=== PATIENT | female | born 1995 | race Caucasian/White ===

== ENCOUNTER 2024-06-18 10:15 | Emergency (ER) | payer OTHER, SELFPAY ==
[2024-06-18 10:25] VITALS: BP 115/81
--- NOTE | 2024-06-18 11:00 | EDRN ---
Dr. Le in room w/pt
[2024-06-18 11:13] VITALS: BMI 25.1
[2024-06-18 11:40] VITALS: BP 126/84
--- NOTE | 2024-06-18 11:46 | ED.GENMED ---
History of Present Illness
General
Chief Complaint: Skin Problem
Time Seen by Provider: 06/18/24 10:42
History of Present Illness
History of Present Illness:
29-year-old female with history of healthcare anxiety on medication presenting to the emergency department for concern of a lump to her right breast. Patient reports last evening she felt like she had a lump in her right upper breast. She went to
urgent care prior to arrival, they told her that she may have a swollen lymph node and advised that she come to the hospital for a mammogram and breast ultrasound. Patient denies any family history of cancer. She reports that she tried to feel the
lump again, however can no longer feel it. Reports that her last menstrual period was about a week ago. Denies any discharge from the nipple. Denies any fever, chest pain, difficulty breathing or additional acute medical complaints.
Past History
Past History
ED Past Medical History: None
ED Past Surgical History: None
Social History
Tobacco: Non-smoker
Alcohol: None
Drug: None
Personal:
Living: with family
Phy Exam
Physical Exam
Physical Exam:
General: Well-appearing, no clinical signs of dehydration, nontoxic and in no acute distress
HEENT: protecting airway
Neck: appears supple
CV: Normal heart rate
Resp: No accessory muscle use, no increased work of breathing
Breast: No swelling or erythema to the breast bilaterally. No palpation of any masses or swollen lymph nodes. No discharge from the nipple. No reproducible pain on palpation
Abd: Soft and non-distended, no tenderness to palpation, normal bowel sounds
Extremities: No deformities
Neuro: alert, no focal neurologic deficit
: deferred
Rectal: deferred
Psych: Normal affect
Skin: Intact
Course
Orders/Labs/Results
Orders:
Orders
06/18/24 11:09
US Breast Left Ltd Urgent
Comment:
Reason For Exam: pain upper breast
Vital Signs
Initial and Last Documented VS:
Initial Vital Signs
Temp Pulse Resp BP Pulse Ox
98.4 F 66 16 115/81 99
06/18/24 10:25 06/18/24 10:25 06/18/24 10:25 06/18/24 10:25 06/18/24 10:25
Last Documented Vital Signs
Temp Pulse Resp BP Pulse Ox
98.4 F 81 16 126/84 99
06/18/24 10:25 06/18/24 11:40 06/18/24 11:40 06/18/24 11:40 06/18/24 11:40
MDM/Problems Addressed
MDM/Problems Addressed:
29-year-old female with history of healthcare anxiety on medication presenting for concern of a mass in her right breast. Vital signs are normal.
On exam, patient is very well-appearing, no acute distress or discomfort. Unremarkable examination of the breast. No palpation of any abnormal masses. No infectious findings, without erythema or warmth. No palpable reproducible tenderness.
Possibly fibrocystic change from recent menstrual cycle. At this time lower suspicion for occult malignancy. Again no findings suggestive of infectious pathology. Patient is requesting a breast ultrasound and mammogram. Explained that mammogram
cannot be done through the ER, requires referral. She is repeatedly asking for ultrasound as well. Explained low utility in the absence of any examination findings. Did discuss with radiology, unable to perform through the emergency department
today, will require outpatient scheduling. This was explained to patient in detail, will require outpatient scheduling for breast ultrasound and mammogram. Advised obtaining the scheduled on an outpatient basis if patient symptoms persist and she
has underlying concerns for malignancy. Otherwise feel stable for discharge. Return precautions discussed
*Critical Care Note
Total Time (30-74mins, 75-104mins- exclusive of procedures): Not Applicable
ED Attending Note
-
Portions of this chart may have been created with voice recognition software.� Occasional wrong word or��sound alike� substitutions may have occurred due to the inherent limitations of voice recognition software.
Discharge Plan
Departure
Patient Disposition: Home (Routine Discharge)
Date of Disposition: 06/18/24
Time of Disposition: 11:41
Patient with high blood pressure during this ER visit?: No
Condition: Good
Discharge Problem:
Breast pain, right
Instructions: Common breast problems
Prescriptions:
No Action
nitrofurantoin monohyd/m-cryst 100 MG capsule
100 mg PO BID
Control
Referrals:
Brian Nur CRNP [Family Provider] -
Activity Restrictions/Additional Instructions:
You were seen in the emergency department for concern of right breast discomfort
You had a normal examination of your breast. Please follow-up outpatient for a mammogram if symptoms persist.
Please follow-up closely with your primary care physician.
Return to the emergency department for any worsening of your symptoms, or any development of chest pain, difficulty breathing, abdominal pain with persistent vomiting and inability to tolerate food or liquid by mouth (concern for dehydration),
weakness, headache or confusion, fever greater than 100.4, or any additional symptoms that are concerning to you.
Thank you for choosing [facility].
Interventions
Interventions:
*Risk Screen - Suicide Last Done: 06/18/24 11:16
*General Assessment Last Done: 06/18/24 11:16
*Neglect/Abuse Screening Last Done: 06/18/24 11:16
ED- Fall Risk Assessment Last Done: 06/18/24 11:17
*ED COVID-19 Vaccine History Last Done: 06/18/24 11:16
ED-Skin Assessment Last Done: 06/18/24 11:17
Discharge Date and Time
Print Language: WALLISIAN
--- NOTE | 2024-06-18 11:55 | EDRN ---
Pt at discharge was begging to have US of R breast waving her script for R breast US. Pt informed that (per [facility] tech) US of breast is done on referral post mammogram not done w/out mammogram and that these are outpatient tests not done in ER. US tech
said that US does not do US of breast for ED patients unless breast has obvious symptoms of cancer which this pt did not have.
== END 2024-06-18 11:55 | disposition home or self-care (01) ==
LOC: EMR 10:15
PROVIDERS: EMERGENCY PHYSICIAN Student in an Organized Health Care Education/Training Program; FAMILY PHYSICIAN Registered Nurse
DX: N64.4 Mastodynia (principal); F41.9 Anxiety disorder, unspecified
CPT/HCPCS: 99282

== ENCOUNTER 2024-08-24 18:46 | Emergency (ER) | payer OTHER, SELFPAY ==
[2024-08-24 18:54] VITALS: BP 116/84
[2024-08-24 19:31] VITALS: BMI 25.0
--- NOTE | 2024-08-24 19:44 | ED.GENMED ---
History of Present Illness
General
Chief Complaint: Abdominal Pain
Source: patient
Exam Limitations: none
Time Seen by Provider: 08/24/24 19:04
History of Present Illness
History of Present Illness:
This is a 29 year old female that comes in with c/o abd cramping and spotting. States that she did have a confirmed test. States that she started last night with cramping as if she was going to have diarrhea. Since 4pm today she started
with spotting lightly. States that she is nauseated, has a headache and just feels 'spacey' . Denies any fever, chills, chest pain, SOB, vomiting, diarrhea, urinary burning.
Past History
Past History
ED Past Medical History: Psychiatric (Anxiety, OCD, Panic disorder) and Other (Ovarian cyst, )
ED Past Surgical History: None
Social History
Tobacco: Non-smoker
Alcohol: Occasional
Drug: None
Personal:
Living: with family
Review of Systems
Review of Systems
All Other Systems: ROS reviewed and negative except as documented in HPI and ROS
Constitutional: Reports no symptoms; Denies fever or chills
EENT: Reports no symptoms
Respiratory: Reports no symptoms; Denies cough or trouble breathing
Cardiac: Reports no symptoms; Denies chest pain
ABD/GI: Reports abdominal pain (cramping) and nausea; Denies vomiting or diarrhea
: Reports bleeding (vaginal spotting); Denies dysuria, frequency or urgency
Musculoskeletal: Reports no symptoms
Skin: Reports no symptoms
Neurological: Reports headache and other (lightheaded or spacey)
Psychiatric: Reports no symptoms
Phy Exam
General Physical Exam
General Presentation: well appearing and no apparent distress
General age: appears stated age
General Skin: warm and dry
General Habitus: normal
General Mental: alert
General Hydration: appears well hydrated
ENT Exam
ENT Exam: TM's normal, pharynx normal and neck supple
Eye Exam
Eye Exam: EOMI
Cardiovascular Exam
Cardiovascular Exam: regular rate/rhythm, no edema, no murmur and normal peripheral pulses
Pulmonary Exam
Pulmonary Exam: lungs clear, no respiratory distress, no rales, chest non tender, no crackles, no rhonchi, no wheezing and no cough
Gastrointestinal Exam
Gastrointestinal Exam: normal bowel sounds, non tender, soft, no organomegaly, no pulsatile mass and non distended
Genitourinary Exam Female
Vaginal Exam: other (Patient is not wearing a pad. Bleeding is very light)
Musculoskeletal Exam
Musculoskeletal Exam: full ROM and no edema
Skin Exam
Skin Exam: normal color, warm/dry, no rash and no petechia
Psychiatric Exam
Psychiatric Exam: normal mood/affect
Course
Orders/Labs/Results
Orders:
Orders
08/24/24 19:16
US W Transvaginal Urgent
Reason For Exam: Abd cramping and Bleeding
08/24/24 19:17
0.9% Sodium Chloride 1000 ml [Nss] 1,000 ml IV BOLUS
08/24/24 19:44
Blood Group&Type Urgent
Beta HCG Quantitative Urgent
Is this a screen?: No
Complete Blood Count/With Diff Urgent
Comprehensive Metabolic Panel Urgent
08/24/24 20:00
ABO2 Urgent
BBK Wristband Number:
Associate notified that ABO2 has been ordered: [id number]
Date: 08/24/24
Time: 19:59
Payroll Coordinator ID: [id number]
Abnormal Lab Results
08/24/24
19:44
Calcium 10.3 H mg/dl
(8.4-10.2)
08/24/24 19:44
08/24/24 19:44
calcium very slightly elevated. Otherwise labs normal. HCG 58.23, O positive
Vital Signs
Initial and Last Documented VS:
Initial Vital Signs
Temp Pulse Resp BP Pulse Ox
98.8 F 112 16 116/84 99
08/24/24 18:54 08/24/24 18:54 08/24/24 18:54 08/24/24 18:54 08/24/24 18:54
Last Documented Vital Signs
Temp Pulse Resp BP Pulse Ox
98.8 F 72 18 112/68 99
08/24/24 18:54 08/24/24 21:26 08/24/24 21:26 08/24/24 21:26 08/24/24 21:26
MDM/Problems Addressed
Differential Diagnosis Includes:
Miscarriage, bleeding in early
MDM/Problems Addressed:
This is a 29 year old female that comes in with c/o vaginal bleeding and cramping. States that she has a confirmed .
will get labs and US. Will give IV fluids to fill.
back into see patient. Explained that her blood work was normal. HCG was 19 on Thursday but today it has increased. Explained to patient that her US shows nothing in the uterus and they feel that there is a right sided cyst. However, concern for
ectopic is on the list. Patient to follow up with the SAIL REPAIR PERSON in 24-48 hours for repeat HCG and recheck. Patient to return to the emergency room with increased right sided abd pain or any other concerns.
Chronic conditions affecting care:
NA
Acute Exacerbation and/or Progression of Chronic Illness:
NA
*Radiology
Radiology exam reviewed: radiology read reviewed (US-thickened endometrium without evidence for intrauterine gestational sac. 2.3 cm irregular shaped thick-walled multiseptated corpus luteal or hemorrhagic cyst in the right ovary. A right ovarian
ectopic is considered less likely. )
*Pulse Oximetry
Patient hypoxic: no
*EKG
Interpreted by ED Provider?: NA
Rate: EKG- N/A
*Actuarial Clerk Interpretation
Rate: Actuarial Clerk- N/A
*Critical Care Note
Total Time (30-74mins, 75-104mins- exclusive of procedures): Not Applicable
ED Attending Note
-
Portions of this chart may have been created with voice recognition software.� Occasional wrong word or��sound alike� substitutions may have occurred due to the inherent limitations of voice recognition software.
Discharge Plan
Departure
Patient Disposition: Home (Routine Discharge)
Date of Disposition: 08/24/24
Time of Disposition: 21:47
Patient with high blood pressure during this ER visit?: No
Condition: Good
Covid-19: Not Applicable
Discharge Problem:
Miscarriage, Cyst of right ovary
Instructions: Miscarriage (DC), Ovarian Cyst ED
Prescriptions:
No Action
Zoloft
175 mg PO DAILY
magnesium 250 mg Tablet
250 mg PO DAILY
cholecalciferol (vitamin D3) [Vitamin D3] 50 mcg (2,000 unit) Tablet
50 mcg PO DAILY
ascorbic acid (vitamin C) [Vitamin C] 1,000 mg Tablet
1,000 mg PO DAILY
Referrals:
Reg Castro MD [Active] - Follow up in 2-3 days
Brian Nur CRNP [Family Provider] -
Activity Restrictions/Additional Instructions:
As discussed, your blood work is normal. Your HCG at this time is 58.23. This has increased from your Fridays labs. Your Ultrasound shows that there is no intrauterine and that there is a right ovarian cyst. It was felt less likely that
this was en ectopic . However, with your increased in your HCG, please call your SAIL REPAIR PERSON and follow up with them in the the next 24-48 hours for repeat HCG and further evaluation. IF YOU HAVE INCREASED RIGHT SIDED ABD PAIN, OR YOU HAVE ANY
OTHER CONCERNS PLEASE RETURN TO THE EMERGENCY ROOM.
Interventions
Interventions:
*Risk Screen - Suicide Last Done: 08/24/24 18:54
*Neglect/Abuse Screening Last Done: 08/24/24 18:54
ED- Fall Risk Assessment Last Done: 08/24/24 19:53
*ED COVID-19 Vaccine History Last Done: 08/24/24 19:56
CM-Uvohuz-Ibeagiq[facility] Assessment Last Done: 08/24/24 19:53
Discharge Date and Time
Print Language: BANGLADESHI
[2024-08-24] MEDS: NSS 1000 IV (19:45)
[2024-08-24 19:56] LABS: % Basophils 0.7 % (0-2); % Eosinophils 0.8 % (0-6); % Immature Granulocytes 0.3 % (0-0.5); % Lymphocytes 29.4 % (20.5-51.1); % Monocytes 7.1 % (1.7-9.3); % Neutrophils 61.7 % (42.2-75.2); Absolute Basophils 0.1 10^3/uL (0-0.2); Absolute Eosinophils 0.1 10^3/uL (0-0.7); Absolute Lymphocytes 2.6 10^3/uL (1.2-3.4); Absolute Monocytes 0.6 10^3/uL (0.1-0.6); Absolute Neutrophils 5.5 10^3/uL (1.4-6.5); Hematocrit 41.5 % (37.0-47.0); Hemoglobin 14.2 g/dL (12.0-16.0); Mean Corp Hgb Conc. 34.2 g/dL (33.0-37.0); Mean Corpuscular Hgb 28.9 pg (27.0-31.0); Mean Corpuscular Volume 84.3 fL (81.0-99.0); Mean Platelet Volume 9.7 fL (7.4-10.4); Nucleated Red Blood Cells % 0 %; Platelet Count 360 10^3/uL (130-400); Red Blood Cell Count 4.92 10^6/uL (4.20-5.40); Red Cell Dist. Width 12.5 % (11.5-14.5); White Blood Cell Count 8.9 10^3/uL (4.8-10.8)
[2024-08-24 20:12] LABS: ALT (SGPT) 18 U/L (0-35); AST (SGOT) 25 U/L (14-36); Albumin 4.9 g/dl (3.5-5.0); Alkaline Phosphatase 44 U/L (38-126); Blood Urea Nitrogen 14 mg/dl (7-17); Calcium 10.3 mg/dl (8.4-10.2); Carbon Dioxide 28 mmol/L (22-30); Chloride 100 mmol/L (98-107); Estimated Creatinine Clearance > 125 ml/min; Glucose 95 mg/dl (70-99); Potassium 4.1 mmol/L (3.5-5.1); Sodium 140 mmol/L (135-145); Total Bilirubin 0.6 mg/dl (0.2-1.3); Total Protein 7.3 g/dl (6.3-8.2); eGFR > 60.00
[2024-08-24 20:28] LABS: Beta HCG Quantitative 58.23 mIU/ml
[2024-08-24 21:26] VITALS: BP 112/68
== END 2024-08-24 22:36 | disposition home or self-care (01) ==
LOC: EMR 18:46
PROVIDERS: Clinical Nurse Specialist Family Health; EMERGENCY PHYSICIAN Student in an Organized Health Care Education/Training Program; FAMILY PHYSICIAN Registered Nurse
DX: O03.9 Complete or unspecified spontaneous abortion without complication (principal); N83.201 Unspecified ovarian cyst, right side
CPT/HCPCS: 99284; 96360; 76801; 76817; 80053; 84702; 85025; 86900; 86901

== ENCOUNTER → 2024-08-26 12:13 | Outpatient (REF) | payer OTHER, SELFPAY ==
[2024-08-26 13:36] LABS: Beta HCG Quantitative 178.97 mIU/ml
== END ==
LOC: REG 12:13
PROVIDERS: ATTENDING PHYSICIAN Obstetrics & Gynecology; FAMILY PHYSICIAN Registered Nurse
DX: Z34.90 Encounter for supervision of normal pregnancy, unspecified, unspecified trimester (principal)
CPT/HCPCS: 36415; 84702

== ENCOUNTER → 2024-08-28 07:17 | Outpatient (REF) | payer OTHER, SELFPAY ==
[2024-08-28 08:04] LABS: Beta HCG Quantitative 501.71 mIU/ml
== END ==
LOC: OIDL 07:17
PROVIDERS: ATTENDING PHYSICIAN Obstetrics & Gynecology
DX: Z32.00 Encounter for pregnancy test, result unknown (principal)
CPT/HCPCS: 84702

== ENCOUNTER → 2024-08-30 09:48 | Outpatient (REF) | payer OTHER, SELFPAY | LOC: REG 09:48 | PROVIDERS: ATTENDING PHYSICIAN Obstetrics & Gynecology | DX: Z34.90 Encounter for supervision of normal pregnancy, unspecified, unspecified trimester (principal) | CPT/HCPCS: 36415; 84702 ==

== ENCOUNTER → 2024-09-01 14:05 | Outpatient (REF) | payer OTHER, SELFPAY | LOC: REG 14:05 | PROVIDERS: ATTENDING PHYSICIAN Obstetrics & Gynecology; FAMILY PHYSICIAN Registered Nurse | DX: Z34.90 Encounter for supervision of normal pregnancy, unspecified, unspecified trimester (principal) | CPT/HCPCS: 36415; 84702 ==

== ENCOUNTER → 2024-09-03 07:25 | Outpatient (REF) | payer OTHER, SELFPAY | LOC: REG 07:25 | PROVIDERS: ATTENDING PHYSICIAN Obstetrics & Gynecology; FAMILY PHYSICIAN Registered Nurse | DX: Z34.90 Encounter for supervision of normal pregnancy, unspecified, unspecified trimester (principal) | CPT/HCPCS: 36415; 84702 ==

== ENCOUNTER → 2024-09-06 09:21 | Outpatient (REF) | payer OTHER, SELFPAY | LOC: RAD 09:21 | PROVIDERS: ATTENDING PHYSICIAN Obstetrics & Gynecology | DX: O36.8990 Maternal care for other specified fetal problems, unspecified trimester, not applicable or unspecified (principal) | CPT/HCPCS: 76801; 76817 ==

== ENCOUNTER → 2024-09-16 10:35 | Outpatient (REF) | payer OTHER, SELFPAY | LOC: RAD 10:35 | PROVIDERS: ATTENDING PHYSICIAN Obstetrics & Gynecology; FAMILY PHYSICIAN Registered Nurse | DX: O36.80X1 Pregnancy with inconclusive fetal viability, fetus 1 (principal) | CPT/HCPCS: 76801; 76817 ==

== ENCOUNTER 2025-03-17 14:14 | Emergency (ER) | payer OTHER, SELFPAY ==
[2025-03-17 14:17] VITALS: BP 140/97
--- NOTE | 2025-03-17 14:48 | ED.GENMED ---
History of Present Illness
General
Chief Complaint: Breast Problem
Source: patient
Time Seen by Provider: 03/17/25 14:33
History of Present Illness
History of Present Illness:
29-year-old female with past medical history of anxiety, OCD presenting to the emergency department at the request of her AUTOMOBILE RENTAL CLERK for ultrasound of the left breast after patient noticed a lump over the last couple of days. Patient without fevers or
infectious symptoms, currently not breast-feeding but does note that she had a miscarriage back in September and currently trying to get and believes that is possible she could be very early in stages of . No headaches, no
, no abnormal weight loss, night sweats or fevers. No known family history of breast disorder. Patient states that she is working on getting an outpatient mammogram, AUTOMOBILE RENTAL CLERK wanted the ultrasound done due to patient having dense breast tissue.
Past History
Past History
ED Past Medical History: Psychiatric (Anxiety, OCD, Panic disorder) and Other (Ovarian cyst, )
ED Past Surgical History: None
Social History
Tobacco: Non-smoker
Alcohol: Occasional
Drug: None
Personal:
Living: with family
Review of Systems
Review of Systems
All Other Systems: ROS reviewed and negative except as documented in HPI and ROS
Phy Exam
Physical Exam
Physical Exam:
GENERAL: Alert , in no apparent distress
EYE: conjunctiva clear
Head: Normocephalic atraumatic
NECK: Supple,
ENT: mmm.
LUNGS: no acute respiratory distress
Deferred as patient currently in the hallway and she just had exam done earlier today at AUTOMOBILE RENTAL CLERK office
NEUROLOGICAL: Alert and oriented
SKIN: Warm and dry, skin intact.
MUSCULOSKELETAL: well perfused.
PSYCH: Normal and appropriate interaction.
BREAST EXAM:
Scores
Heart Failure Risk
Heart Failure Risk Score: Not Applicable
Heart Score for Chest Pain Patients
STEMI patient?: Not applicable
Withdrawal Assessment of Alcohol
Withdrawal Assessment Completed?: Not applicable
Course
Orders/Labs/Results
Orders:
Orders
03/17/25 14:56
US Breast Left Ltd [facility] Urgent
Reason for Exam: PALP LUMP/MASS SENT BY DR SPENCER
Vital Signs
Initial and Last Documented VS:
Initial Vital Signs
Temp Pulse Resp BP Pulse Ox
98.2 F 93 16 140/97 98
03/17/25 14:17 03/17/25 14:17 03/17/25 14:17 03/17/25 14:17 03/17/25 14:17
Last Documented Vital Signs
Temp Pulse Resp BP Pulse Ox
98.2 F 93 16 140/97 98
03/17/25 14:17 03/17/25 14:17 03/17/25 14:17 03/17/25 14:17 03/17/25 14:17
MDM/Problems Addressed
Differential Diagnosis Includes:
Fibroadenoma, cyst, less concern for infectious etiology, malignancy considered
MDM/Problems Addressed:
29-year-old female presenting to the ER for evaluation of noticing a left breast lump over the last couple of days. Patient sent to the ER for stat breast ultrasound. Patient otherwise well-appearing. Ultrasound ordered. Will discuss with AUTOMOBILE RENTAL CLERK
following completion of the exam.
*Radiology
Radiology exam reviewed: radiology read reviewed
*Pulse Oximetry
Patient hypoxic: no
*Critical Care Note
Total Time (30-74mins, 75-104mins- exclusive of procedures): Not Applicable
Patient Management
Discussion with other providers: Respiratory Equipment Assistant
Escalation/DeEscalation of care consider admission/obs:
Patient's ultrasound shows a likely simple cyst, dense breast tissue, BI-RADS 0. I notified on-call AUTOMOBILE RENTAL CLERK, Dr. Castro. They will follow-up with the patient. Unfortunately patient unable to get mammogram today as she was unable to provide a
urine specimen for test and the facility was closing for the day and they do not perform mammograms over the weekend. Patient has one scheduled for this coming Thursday. At this time patient is stable for discharge home and continued
outpatient management.
ED Attending Note
-
Portions of this chart may have been created with voice recognition software.� Occasional wrong word or��sound alike� substitutions may have occurred due to the inherent limitations of voice recognition software.
Discharge Plan
Departure
Patient Disposition: Home (Routine Discharge)
Date of Disposition: 03/17/25
Time of Disposition: 16:07
Patient with high blood pressure during this ER visit?: Yes
Discharge Problem:
Left breast lump
Instructions: Common breast problems
Prescriptions:
No Action
Zoloft
175 mg PO DAILY
magnesium 250 mg Tablet
250 mg PO DAILY
cholecalciferol (vitamin D3) [Vitamin D3] 50 mcg (2,000 unit) Tablet
50 mcg PO DAILY
ascorbic acid (vitamin C) [Vitamin C] 1,000 mg Tablet
1,000 mg PO DAILY
Referrals:
Brian Nur CRNP [Family Provider, Internal Medicine]
Interventions
Interventions:
*Risk Screen - Suicide Last Done: 03/17/25 14:17
*Neglect/Abuse Screening Last Done: 03/17/25 14:17
Discharge Date and Time
Print Language: TAMAZIGHT
== END 2025-03-17 16:34 | disposition home or self-care (01) ==
LOC: EMR 14:14
PROVIDERS: EMERGENCY PHYSICIAN Emergency Medicine; FAMILY PHYSICIAN Registered Nurse
DX: N63.20 Unspecified lump in the left breast, unspecified quadrant (principal)
CPT/HCPCS: 99284; 76642